=== PATIENT | male | born 1935 | race Caucasian/White ===

== ENCOUNTER 2019-06-17 16:52 | Emergency (ER) | payer MEDICARE, SELFPAY ==
--- NOTE | ~2019-06-17 | XR_ITS ---
XR foot RT 2V 06/17/2019 17:50 Indication: Right foot pain. Ulcer. Procedure: 2 views right foot Comparison: No prior studies for comparison. Findings: There is extensive arterial calcification. 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 There is a healed fifth metatarsal fracture. Small degenerative calcaneal enthesophyte. No fracture, subluxation or dislocation. No evidence for osteomyelitis. Impression: 1: No acute abnormality of the right foot. If there is concern for osteomyelitis, consider correlatio n with nuclear 3 phase bone scan or MRI. Reviewed, dictated and finalized at location A. [employer] Impression: 1: No acute abnormality of the right foot. If there is concern for osteomyeliti s, consider correlation with nuclear 3 phase bone scan or MRI.
[2019-06-17 17:05] VITALS: BP 145/90; PULSE 90; RESP 20; TEMP 37.2; O2SAT 98
[2019-06-17] MEDS: CLINDAMYCIN 600 MG/D5W 50 ML 600 MG/50 ML PIGGYBACK 100 MG IVPB (17:38)
[2019-06-17 18:02] LABS: Hematocrit 37.5 % (37.0-46.0); Hemoglobin 12.5 g/dL (12.4-15.3); Mean Corpuscular HGB Conc 33.3 g/dL (32.0-36.0); Mean Corpuscular Hemoglobin 32.9 pg (27.0-31.0); Mean Corpuscular Volume 98.7 fL (78.0-102.0); Platelet Count Result 229 K/mm3 (150-420); Red Cell Distribution Width 14.2 % (11.6-14.4); White Blood Count 5.7 K/mm3 (4.8-10.8)
[2019-06-17 18:22] LABS: Alanine Aminotransferase 33 U/L (16-63); Alkaline Phosphatase 102 U/L (46-116); Anion Gap 13.1 mmol/L (7-16); Aspartate Amino Transferase 29 U/L (15-37); Bilirubin,Total 0.4 mg/dL (0.00-1.00); Blood Urea Nitrogen 26 mg/dL (7-18); Calcium 9.5 mg/dL (8.5-10.1); Carbon Dioxide 30 mmol/L (21-32); Chloride 104 mmol/L (98-108); Estimated Glomerular Filt Rate 53; Glucose 96 mg/dL (70-99); Osmolality Calculated 300 mOsm/kg (285-295); Potassium 4.1 mmol/L (3.5-5.1); Sodium 143 mmol/L (136-145); Total Protein 7.8 g/dL (6.4-8.2)
--- NOTE | 2019-06-17 18:38 | ED.LOWEXIN ---
HPI - Extremity Injury (Lower) General Chief Complaint: Extremity Injury, Lower Stated Complaint: heel pain, swollen Source: patient Mode of arrival: ambulatory History of Present Illness HPI Narrative: Patient presents with his 84-year-old with a.m. open sore to his some right heel has red beefy red with no tracking Um currently no no pain there is some mild bruising no foul odor has a good distal pulses and no fever chills no pain has good range of motion and there is some lower extremity swelling. complaint: foot injury Onset (ago): unknown Injury: Right: foot Type of Injury: unknown Place: home Severity: mild Severity scale (1-10): 1 Exacerbating factors: nothing Context: other Associated symptoms: ambulatory Other symptoms: none Related Data Home Medications Medication Instructions Recorded Confirmed diphenhydramine HCl [Nightime 50 mg PO HS 06/17/19 06/17/19 Sleep] pediatric multivitamin 1 tablet PO DAILY 06/17/19 06/17/19 [Flintstones Multivitamin] potassium chloride 8 meq PO DAILY 06/17/19 06/17/19 triamterene 50 mg PO DAILY 06/17/19 06/17/19 Allergies Allergy/AdvReac Type Severity Reaction Status Date / Time iron Allergy Severe HIVES AND Verified 03/11/18 09:00 SWELLING Penicillins Allergy Severe HIVES AND Verified 03/11/18 08:56 SWELLING Review of Systems Review of Systems: All systems reviewed & are unremarkable except as noted in HPI and below PMFSH Past Medical History Medical History Dementia Exam Const: General: no acute distress and confusion Nutritional Appearance: well nourished Orientation/consciousness: patient oriented x3 HENMT: Head: normal to inspection Eyes: Conjunctivae: conjunctivae normal Pupils: Equal, round and reactive pupils present Neck: Neck: normal visual inspection Chest: Chest palpation & inspection: normal inspection of the chest Resp: Effort & Inspection: normal respiratory effort Auscultation: clear to auscultation bilaterally Cardio: Rate: regular rate Rhythm: regular rhythm Skin: Wounds: wounds noted ( Beefy red area on the heel of his right foot) Neuro: General: patient oriented x3 Psych: Mental Status: mental status grossly normal Course Vital Signs Vital signs: Vital Signs Temperature 37.2 C 06/17/19 17:05 Pulse Rate 90 06/17/19 17:05 Respiratory Rate 20 06/17/19 17:05 Blood Pressure 145/90 H 06/17/19 17:05 Pulse Oximetry 98 06/17/19 17:05 Temperature 37.2 C 06/17/19 17:05 Pulse Rate 90 06/17/19 17:05 Respiratory Rate 20 06/17/19 17:05 Blood Pressure 145/90 H 06/17/19 17:05 Pulse Oximetry 98 06/17/19 17:05 MDM - Extremity Injury (Lower) Lab Data Result diagrams: 06/17/19 17:57 06/17/19 17:57 Labs: Lab Results 06/17/19 06/17/19 Range/Units 17:57 17:57 WBC 5.7 (4.8-10.8) K/mm3 RBC 3.80 L (4.70-6.10) M/mm3 Hgb 12.5 (12.4-15.3) g/dL Hct 37.5 (37.0-46.0) % MCV 98.7 (78.0-102.0) fL MCH 32.9 H (27.0-31.0) pg MCHC 33.3 (32.0-36.0) g/dL RDW 14.2 (11.6-14.4) % Plt Count 229 (150-420) K/mm3 MPV 9.0 (8.7-11.0) fl Sodium 143 (136-145) mmol/L Potassium 4.1 (3.5-5.1) mmol/L Chloride 104 (98-108) mmol/L Carbon Dioxide 30 (21-32) mmol/L Anion Gap 13.1 (7-16) mmol/L BUN 26 H (7-18) mg/dL Creatinine 1.29 (0.70-1.30) mg/dL Estim Creat Clear Calc Not Reportable Estimated GFR 53 L (59 - ) Glucose 96 (70-99) mg/dL Calculated Osmolality 300 H (285-295) mOsm/kg Calcium 9.5 (8.5-10.1) mg/dL Total Bilirubin 0.4 (0.00-1.00) mg/dL AST 29 (15-37) U/L ALT 33 (16-63) U/L Alkaline Phosphatase 102 (46-116) U/L Total Protein 7.8 (6.4-8.2) g/dL Albumin 4.0 (3.4-5.0) g/dL Critical Care Time Critical Care Time Critical Care Time: No Discharge Plan Discharge Clinical Impression: Pressure
[2019-06-17 18:57] VITALS: BP 116/64
== END 2019-06-17 18:58 | disposition home or self-care (01) ==
PROVIDERS: Emergency Provider Emergency Medicine; PCP Physician Assistant
DX: L89.612 Pressure ulcer of right heel, stage 2 (principal)
CPT/HCPCS: 36415; 73620; 80053; 85027; 87040; 87070; 87205; 96365; 99283; 99284